=== PATIENT | female | born 1945 | race Caucasian/White ===

== ENCOUNTER 2020-11-03 10:42 | Outpatient (CLI) | payer SELFPAY ==
[2020-11-03 11:09] LABS: Basophils # 0.1 10^3/uL (0.0-0.1); Basophils % 1.2 %; Eosinophils # 0.3 10^3/uL (0.0-0.8); Eosinophils % 3.8 %; Hematocrit 42.2 % (37.0-47.0); Hemoglobin 13.4 g/dL (11.5-15.3); Lymphocytes # 2.6 10^3/uL (0.8-4.8); Mean Corpuscular HGB Conc 31.8 g/dL (30.0-36.0); Mean Corpuscular Hemoglobin 28.5 pg (28.0-34.0); Mean Corpuscular Volume 89.6 fL (81-99); Mean Platelet Volume 9.6 fL (7.4-10.4); Monocytes # 0.6 10^3/uL (0.2-0.9); Monocytes % 8.5 %; Neutrophils # 3.73 10^3/uL (1.8-7.7); Neutrophils % 51.1 %; Nucleated Red Blood Cells % 0 %; Platelet Count 232 10^3/cmm (130-400); Red Blood Count 4.71 10^6/uL (4.1-5.3); Red Cell Distribution Width 12.5 % (12.1-15.1); White Blood Count 7.3 10^3/uL (4.0-10.0)
[2020-11-03 11:38] LABS: Estmated Average Glucose 189; Hemoglobin A1C 8.2 % (4.0-6.0)
[2020-11-03 12:10] LABS: 25 Hydroxy Vitamin D 33 ng/mL (30-100); Alanine Aminotransferase 23 U/L (0-33); Albumin Level 3.6 g/dL (3.5-5.2); Alkaline Phosphatase 102 IU/L (35-105); Anion Gap 10.1 (5-19); Aspartate Amino Transferase 20 U/L (0-32); Blood Urea Nitrogen 13 mg/dL (8-23); Calcium 8.8 mg/dL (8.5-10.5); Carbon Dioxide 29 mmol/L (22-29); Chloride 104 mmol/L (98-107); Chol HDL Ratio 3.55 mg/dL (0.0-4.40); Cholesterol 174 mg/dL (0-200); Globulin 2.8 g/dL (1.3-4.6); Glucose 225 mg/dL (65-115); HDL Cholesterol 49 mg/dL (60-100); LDL Cholesterol Calculated 100 mg/dL (50-129); LDL HDL Ratio 2.04 RATIO (0.00-3.22); Osmolality Calculated 295 mOsm/kg (285-295); Potassium 4.1 mmol/L (3.5-5.1); Sodium 139 mmol/L (136-145); Thyroid Stimulating Hormone 3.59 uIU/mL (0.27-4.20); Total Bilirubin 0.2 mg/dL (0.15-1.2); Total Protein 6.4 g/dL (6.6-8.7); Triglycerides 124 mg/dL (0-150)
== END 2020-11-03 10:43 | disposition home or self-care (01) ==
PROVIDERS: PCP Family Medicine; Visit Provider Dermatology
DX: Z01.89 Encounter for other specified special examinations (principal)
CPT/HCPCS: 80053; 80061; 82306; 83036; 84443; 85025

== ENCOUNTER 2021-05-12 08:48 | Outpatient (CLI) | payer OTHER, SELFPAY ==
--- NOTE | 2021-05-12 08:53 | MM_ITS ---
WS: [id number] Exam: [place] [id number] Date/Time of Exam: 05/12/2021 8:56 AM Reason For Exam: SCREENING VIEWS: MLO and CC views both breasts. Comparison made with prior exam of 02/22/2011, 10/19/2016.. Findings: There was no sign of mass, architectural distortion or suspicious calcification in either breast. Sc attered fibroglandular densities. MM/[place] [id number] Impression: BI-RADS: 2-Benign FOLLOW-UP: 1 Year Follow-up This mammogram was also analyzed by the Computer Aided Detection System [employer] Consulting Manager.
--- NOTE | 2021-05-12 09:29 | XR_ITS ---
WS: [id number] SCREENING DEXA SCAN [facility] CLINICAL INFORMATION: POST MENOPAUSAL COMPARISON: None. FINDINGS: The L1-L4 bone mineral density measures 1.098 g/cm2. This corresponds to a T score score of -0.7 and Z score of -0.1. Left femoral neck bone mineral density measures 0.836 g/cm2. This corresponds to a T score of -1.4 an d Z score of -0.4. Right femoral neck bone mineral density measures 0.785 g/cm2. This corresponds to a T score -1.8of an d Z score of -0.8. Mean femoral neck bone mineral density measures 0.810 g/cm2. This corresponds to a T score of -1.6 an d Z score of -0.6. XR/XR DEXA axial skeleton* [id number] IMPRESSION: Normal bone mineralization lumbar spine. Osteopenia femoral necks. Patient's FRAX calculated 10 year probability for major osteoporotic fracture i s 23.9 % and osteoporotic hip fracture is 14.5%.
== END 2021-05-12 08:49 | disposition home or self-care (01) ==
LOC: RADSHAW 08:51
PROVIDERS: PCP Family Medicine; Visit Provider Family Medicine
DX: Z12.31 Encounter for screening mammogram for malignant neoplasm of breast (principal); Z78.0 Asymptomatic menopausal state
CPT/HCPCS: 77067; 77080

== ENCOUNTER 2021-08-01 14:14 | Emergency (ER) | payer OTHER, SELFPAY ==
[2021-08-01 14:24] VITALS: BP 199/81; PULSE 59; RESP 18; TEMP 36.4; O2SAT 96; BMI 44.2
--- NOTE | 2021-08-01 14:45 | XRR_ITS ---
PROCEDURE INFORMATION: Exam: XR Left Hip Exam date and time: 08/01/2021 2:45 PM Age: 76 years old Clinical indication: Hip pain; Left hip TECHNIQUE: Imaging protocol: XR Left hip. Views: 2 or 3 views hip with pelvis when performed. COMPARISON: No relevant prior studies available. FINDINGS: Bones/joints: Mild degenerative changes of the left hip joint and pubic symphysis. The bones are intact and in normal alignment. Soft tissues: Unremarkable. Intraperitoneal space: Metallic anchors in the low pelvis. XR/XR hip LT 2-3V wo/w pel* [id number] IMPRESSION: No acute finding.
[2021-08-01] MEDS: morphine 4 mg/mL SDV 1 mL IM (15:42)
--- NOTE | 2021-08-01 15:46 | W.ED.EXTPRO ---
HPI - Extremity Problem General: Chief complaint: General Medical Stated complaint: Hip pain Time Seen by Provider: 08/01/21 15:23 Source: patient and family Mode of arrival: ambulatory Limitations: no limitations History of Present Illness: HPI Narrative: Patient is a nice 76-year-old female who presents to ED today with a complaint of left hip pain over the past week or so. She states she initially believes the hip began bothering her after cleaning. She is reporting vague pains along the posterior aspect of the hip joint/gluteal region but also reporting pain laterally. She states pain seems to worsen with prolonged ambulation, rising from a seated position, and sleeping on the affected side. She was treated about 48 hours ago with IM Dexamethasone and Toradol without much improvement. She has been doing ice and heat as well at home. She does not complain of radicular symptoms. She does not complain of lower back pain. MD Complaint: joint pain Onset (ago): day(s) Pain Consistency: constant Location: left Exacerbating factors: weight bearing and walking Associated symptoms: Reports no associated symptoms; Deny chest pain or fever(s) Review of Systems Const: Denies: fever(s), chills, body aches, fatigue or malaise Card: Denies: chest pain Resp: Denies: dyspnea : Denies: flank pain or dysuria Musc: Reports: joint pain (L hip); Denies: neck pain, back pain, extremity pain, extremity swelling, joint swelling, joint redness or joint warmth Neuro: Denies: numbness in extremities, weakness in extremities or sensory changes [facility] PFSH: Medical History (Updated 08/01/21 @ 16:18 by VAL Avendano) Diabetic acidosis HTN (hypertension) Surgical History (Updated 08/03/20 @ 12:21 by Valery Escobar DO) History of appendectomy History of hysterectomy Family History Other Arthritis Cancer Diabetes Social History (Updated 08/03/20 @ 09:07 by Sandee Adams LPN) Smoking and tobacco status: former smoker Alcohol intake: never Physical Exam Const: COMMON NORMALS: no acute distress, patient oriented x3, no limitations and alert GENERAL APPEARANCE: cooperative NUTRITIONAL APPEARANCE: obese morbidly obese ORIENTATION/CONSCIOUSNESS: Yes awake, Yes oriented to person, Yes oriented to place and Yes oriented to time Back/Pelvis: COMMON NORMALS: thoracic and lumbar spine normal to inspection, no thoracic nor lumbar tenderness and thoraco-lumbar ROM normal Extremity: COMMON NORMALS: full ROM, capillary refill normal, no joint enlargement, no clubbing, cyanosis or edema, no calf tenderness and no pedal edema GENERAL: Yes normal exam except as noted LEFT LOWER EXTREMITY: Yes hip joint Left hip: Yes palpation (vague tenderness to posteriolateral hip; pain worse w/ certain ROM maneuver) and Yes neurovascular exam (normal) Neuro: COMMON NORMALS: patient oriented x3, moves all extremities, no focal motor deficits and no sensory deficits noted SENSORIUM/ORIENTATION: Yes alert, Yes oriented to person, Yes oriented to place and Yes oriented to time Skin: COMMON NORMALS: no rashes or lesions noted GENERAL SKIN EXAM: no rashes or lesions noted Course Vital Signs: Vital signs: Vital Signs Temperature 97.6 F 08/01/21 14:24 Pulse Rate 59 L 08/01/21 14:24 Respiratory Rate 18 08/01/21 14:24 Blood Pressure 199/81 08/01/21 14:24 Pulse Oximetry 96 08/01/21 14:24 MDM - Extremity (Nontraumatic) MDM Narrative: Medical decision making narrative: History and exacerbating factors are suspicious for a greater trochanter pain syndrome/trochanteric bursitis. She was given instructions for specific exercises she can try. We can also see if steroids/muscle relaxers will help at all with this. Will place referral to orthopedics for further evaluation. Discussed how physical therapy sometimes can be beneficial as well. Imaging Data^: XR L hip: My impression: NAD Discharge Plan Discharge Patient Disposition: Home Clinical Impression: Greater trochanteric pain syndrome Condition: Stable Prescriptions: New Zanaflex 2 mg capsule 2 mg PO Q8H PRN (Reason: muscle spasticity) Qty: 30 RF: 0 prednisone 10 mg tablet 10 mg PO DAILY 10 Days Qty: 41 RF: 0 No Action losartan 100 mg tablet 100 mg PO DAILY RF: 0 glimepiride 2 mg tablet 2 mg PO QAM RF: 0 amlodipine 10 mg tablet 10 mg PO DAILY PRNRF: 0 hydrochlorothiazide 25 mg tablet 25 mg PO .prn RF: 0 Galzin 50 mg (zinc) capsule 50 mg PO DAILY RF: 0 potassium gluconate 595 mg (99 mg) tablet 595 mg PO DAILY RF: 0 ascorbate calcium (vitamin C) 500 mg tablet 500 mg PO DAILY RF: 0 naproxen 250 mg tablet 250 mg PO BID PRNRF: 0 cholecalciferol (vitamin D3) 50 mcg (2,000 unit) capsule 50 mcg PO DAILY RF: 0 ketoconazole 2 % shampoo 1 applic topical .2 x weekly Qty: 120 RF: 3 ketoconazole 2 % cream 1 applic topical BID Qty: 60 RF: 2 mometasone 0.1 % solution 1 applic topical DAILY Qty: 60 RF: 2 Discharge Orders: Discharge ED (Routine); Ordered 08/01/21 Ordered By: Mis Sullivan Referrals: Gareth Moreau MD [Primary Care Provider] - Coding Level of Care Code ED Medical Authorization Specialist for Ralph Santos
--- NOTE | 2021-08-01 22:51 | DCPLANNER ---
manager civil had message to schedule a follow up appointment for patient with ortho. manager civil emailed patients information to Yolanda at the ortho clinic. Patients information will be printed and reviewed. Clinic will call patient with appointment information.
--- NOTE | 2021-08-05 14:39 | DCPLANNER ---
Addendum entered by Carrie Matias 09/16/21 17:24: Patient had a follow up appointment scheduled for 09.08.21 - appointment was cancelled. Original Note: Patient has a follow up appointment scheduled for Wednesday, September 08, 2021 at 10:[address] Quigley at [facility]. Clinic will call patient with appointment information.
== END 2021-08-01 16:57 | disposition home or self-care (01) ==
PROVIDERS: Emergency Provider Physician Assistant; PCP Family Medicine
DX: M25.552 Pain in left hip (principal); Z79.84 Long term (current) use of oral hypoglycemic drugs; E11.9 Type 2 diabetes mellitus without complications; I10 Essential (primary) hypertension; Z87.891 Personal history of nicotine dependence
CPT/HCPCS: 73502; 96372; 99283; J2270

== ENCOUNTER → 2021-12-22 11:18 | Outpatient (BNVA) | payer MEDICARE, SELFPAY | PROVIDERS: PCP Family Medicine; Visit Provider Family Medicine | DX: E78.5 Hyperlipidemia, unspecified (principal); I10 Essential (primary) hypertension; E11.8 Type 2 diabetes mellitus with unspecified complications | CPT/HCPCS: 80053; 83036; 84443 ==

== ENCOUNTER → 2022-02-16 14:44 | Outpatient (BNVA) | payer MEDICARE, SELFPAY | PROVIDERS: PCP Family Medicine; Visit Provider Family Medicine | DX: N39.0 Urinary tract infection, site not specified (principal) | CPT/HCPCS: 81000; 87077; 87086; 87184 ==

== ENCOUNTER → 2022-03-02 09:18 | Outpatient (BNVA) | payer MEDICARE, SELFPAY | PROVIDERS: PCP Family Medicine; Referring Provider Family Medicine; Visit Provider Orthopaedic Surgery | DX: M17.11 Unilateral primary osteoarthritis, right knee (principal) | CPT/HCPCS: 20610; 99204; J0702; J3490 ==

== ENCOUNTER 2022-04-26 07:54 | Outpatient (CLI) | payer SELFPAY ==
[2022-04-26 08:48] LABS: HF Add Manual Diff No
[2022-04-26 08:59] LABS: Basophils # 0.1 10^3/uL (0.0-0.1); Basophils % 0.9 %; Eosinophils # 0.2 10^3/uL (0.0-0.8); Eosinophils % 3.2 %; Hematocrit 46.3 % (37.0-47.0); Hemoglobin 15.1 g/dL (11.5-15.3); Lymphocytes # 2.9 10^3/uL (0.8-4.8); Lymphocytes % 38.6 %; Mean Corpuscular HGB Conc 32.6 g/dL (30.0-36.0); Mean Corpuscular Volume 88.9 fl (81-99); Mean Platelet Volume 8.9 fL (7.4-10.4); Monocytes # 0.7 10^3/uL (0.2-0.9); Monocytes % 9.6 %; Neutrophils # 3.56 10^3/uL (1.8-7.7); Neutrophils % 47.4 %; Nucleated Red Blood Cells % 0 %; Platelet Count 234 10^3/cmm (130-400); Red Blood Count 5.21 10^6/uL (4.1-5.3); White Blood Count 7.5 10^3/uL (4.0-10.0)
[2022-04-26 09:25] LABS: Alanine Aminotransferase 19 U/L (0-33); Alkaline Phosphatase 95 U/L (35-105); Anion Gap 12.1 (5-19); Aspartate Amino Transferase 21 U/L (0-32); Blood Urea Nitrogen 12 mg/dL (8-23); Calcium 9.1 mg/dL (8.5-10.5); Carbon Dioxide 28 mmol/L (22-29); Chloride 105 mmol/L (98-107); Cholesterol 199 mg/dL (0-200); Globulin 2.6 g/dL (1.3-4.6); Glucose 108 mg/dL (65-115); HDL Cholesterol 51 mg/dL (60-100); LDL Cholesterol Calculated 131 mg/dL (50-129); LDL HDL Ratio 2.57 RATIO (0.00-3.22); Osmolality Calculated 292 mOsm/kg (285-295); Potassium 4.1 mmol/L (3.5-5.1); Sodium 141 mmol/L (136-145); Thyroid Stimulating Hormone 3.88 uIU/mL (0.27-4.20); Total Bilirubin 0.5 mg/dL (0.15-1.2); Total Protein 6.6 g/dL (6.6-8.7); Triglycerides 83 mg/dL (0-150)
[2022-04-26 09:34] LABS: Estmated Average Glucose 160; Hemoglobin A1C 7.2 % (4.0-6.0)
== END 2022-04-26 07:55 | disposition home or self-care (01) ==
LOC: LAB 07:58
PROVIDERS: PCP Family Medicine; Visit Provider Dermatology
DX: Z01.89 Encounter for other specified special examinations (principal)

== ENCOUNTER 2022-07-26 10:12 | Outpatient (CLI) | payer SELFPAY ==
[2022-07-26 10:48] LABS: HF Add Manual Diff No
[2022-07-26 11:11] LABS: Basophils # 0.1 10^3/uL (0.0-0.1); Basophils % 1.2 %; Eosinophils # 0.3 10^3/uL (0.0-0.8); Eosinophils % 3.7 %; Hematocrit 47.6 % (37.0-47.0); Hemoglobin 15.4 g/dL (11.5-15.3); Lymphocytes # 3.4 10^3/uL (0.8-4.8); Mean Corpuscular HGB Conc 32.4 g/dL (30.0-36.0); Mean Corpuscular Hemoglobin 28.5 pg (28.0-34.0); Monocytes # 0.8 10^3/uL (0.2-0.9); Monocytes % 8.6 %; Neutrophils % 48.3 %; Nucleated Red Blood Cells % 0 %; Platelet Count 264 10^3/cmm (130-400); Red Blood Count 5.41 10^6/uL (4.1-5.3); Red Cell Distribution Width 12.7 % (12.1-15.1); White Blood Count 8.9 10^3/uL (4.0-10.0)
[2022-07-26 11:18] LABS: Alanine Aminotransferase 21 U/L (0-33); Albumin Level 3.8 g/dL (3.5-5.2); Alkaline Phosphatase 110 U/L (35-105); Anion Gap 11.4 (5-19); Aspartate Amino Transferase 18 U/L (0-32); Blood Urea Nitrogen 13 mg/dL (8-23); Calcium 9.4 mg/dL (8.5-10.5); Carbon Dioxide 28 mmol/L (22-29); Chloride 102 mmol/L (98-107); Chol HDL Ratio 3.43 mg/dL (0.0-4.40); Cholesterol 185 mg/dL (0-200); Globulin 3.2 g/dL (1.3-4.6); Glucose 142 mg/dL (65-115); HDL Cholesterol 54 mg/dL (60-100); LDL Cholesterol Calculated 114 mg/dL (50-129); LDL HDL Ratio 2.11 RATIO (0.00-3.22); Osmolality Calculated 287 mOsm/kg (285-295); Potassium 4.4 mmol/L (3.5-5.1); Sodium 137 mmol/L (136-145); Total Bilirubin 0.3 mg/dL (0.15-1.2); Triglycerides 83 mg/dL (0-150)
[2022-07-26 12:12] LABS: Estmated Average Glucose 157; Hemoglobin A1C 7.1 % (4.0-6.0)
== END 2022-07-26 10:13 | disposition home or self-care (01) ==
PROVIDERS: PCP Family Medicine; Visit Provider Dermatology
DX: Z01.89 Encounter for other specified special examinations (principal)

== ENCOUNTER → 2023-02-21 13:47 | Outpatient (BNVA) | payer OTHER, MEDICAID, SELFPAY | PROVIDERS: PCP Family Medicine; Visit Provider Family Medicine | DX: I10 Essential (primary) hypertension (principal); E11.9 Type 2 diabetes mellitus without complications | CPT/HCPCS: 80053; 80061; 83036 ==

== ENCOUNTER → 2023-05-16 09:08 | Outpatient (BNVA) | payer MEDICARE, SELFPAY | PROVIDERS: PCP Family Medicine; Visit Provider Family Medicine | DX: M79.672 Pain in left foot (principal); R60.9 Edema, unspecified; I10 Essential (primary) hypertension | CPT/HCPCS: 80053; 83880; 84550; 85025; 85379; 86140 ==

== ENCOUNTER 2023-05-18 14:27 | Outpatient (CLI) | payer MEDICARE, SELFPAY ==
--- NOTE | 2023-05-18 14:45 | USCV_ITS ---
Rachel Gonzalez Age: 77 Gender: F : 1945 Exam Date: 05/18/2023 14:55 Ordering Phys: Gareth Moreau MD Technologist: Gucci Gresham Exam Location: [facility] [place]_ Indication: lt leg edema PROCEDURES: Venous duplex imaging was performed in only the left lower extremity. The following venous structures were evaluated: common femoral vein, profunda vein, proximal portion of the greater saphenous vein, superficial femoral vein, and the popliteal vein. In addition, the posterior tibial and peroneal trunk were evaluated. FINDINGS: Normal 2-D Doppler and augmentation and compressibility throughout the lower extremity venous structures. Additional imaging through the proximal calf veins also reveals no thrombus. Limited evaluation of the greater saphenous vein is patent with no thrombus. CONCLUSIONS No evidence of left lower extremity DVT. Jay Thurston MD (Electronically Signed) Final Date: 18 May 2023 17:14 S
== END 2023-05-18 14:28 | disposition home or self-care (01) ==
LOC: RAD 14:28
PROVIDERS: PCP Family Medicine; Visit Provider Family Medicine
DX: R60.9 Edema, unspecified (principal); M79.672 Pain in left foot; R79.89 Other specified abnormal findings of blood chemistry
CPT/HCPCS: 93971

== ENCOUNTER 2023-05-23 11:52 | Outpatient (CLI) | payer MEDICARE, SELFPAY ==
--- NOTE | 2023-05-23 11:59 | XRR_ITS ---
PROCEDURE INFORMATION: Exam: XR Left Foot Exam date and time: 05/23/2023 12:09 PM Age: 77 years old Clinical indication: Pain; Foot; Left; Additional info: Foot pain TECHNIQUE: Imaging protocol: Radiologic exam of the left foot. Views: 3 or more views. COMPARISON: No relevant prior studies available. FINDINGS: Bones/joints: No acute fracture or dislocation. Diffusely decreased mineralization. Mild degenerative change at the great toe MTP joint and scattered throughout the IP joints. Plantar calcaneal enthesophyte. Soft tissues: Soft tissue swelling greatest about the imaged lower leg and ankle. XR/XR foot LT min 3V* [id number] IMPRESSION: 1. Osteopenia without evidence of acute fracture or dislocation. 2. Lower leg and ankle soft tissue edema.
== END 2023-05-23 11:53 | disposition home or self-care (01) ==
LOC: RAD 11:54
PROVIDERS: PCP Family Medicine; Visit Provider Family Medicine
DX: M79.672 Pain in left foot (principal); M85.872 Other specified disorders of bone density and structure, left ankle and foot; R60.0 Localized edema
CPT/HCPCS: 73630

== ENCOUNTER → 2024-07-02 09:04 | Outpatient (BNVA) | payer MEDICARE, SELFPAY | PROVIDERS: PCP Family Medicine; Visit Provider Family Medicine | DX: I10 Essential (primary) hypertension (principal); E11.9 Type 2 diabetes mellitus without complications; E55.9 Vitamin D deficiency, unspecified; N76.3 Subacute and chronic vulvitis | CPT/HCPCS: 80053; 80061; 81000; 82306; 83036; 85025; 87086 ==

== ENCOUNTER 2024-09-23 15:40 | Outpatient (CLI) | payer MEDICARE, SELFPAY ==
--- NOTE | 2024-09-23 16:00 | MR_ITS ---
WS: [id number] MRI LEFT SHOULDER HISTORY: rotator cuff injury COMPARISON: None available. TECHNIQUE: Multiplanar sequences of the shoulder joint are submitted. Initial exam was performed on 09/23/2024 and repeated on 09/27/2024 for better quality imaging. Moderate to severe AC joint arthritis. AC joint is narrowed with small amount of fluid. Hypertrophic soft tissue in osteophyte. Slight downsloping of the acromion with severe subacromial impingement. There is fluid in the subacromial and subdeltoid bursa. Humeral head abuts the undersurface of the acromion. Very small caliber biceps tendon. There is increased fluid surrounding the residual biceps tendon. Probable partial tear with retraction of portion of the biceps tendon. No os acromion. Moderate amount of fluid surrounding the humeral head extending into the axillary pouch and the subscapularis recess. High riding humeral head. Severe atrophy of the supraspinatus muscle. Complete tear of the supraspinatus tendon retracted to the medial humeral head. Marked infraspinatus muscle atrophy. There is marked thinning of the distal tendon and probable insertion site tear. There is no full-thickness tear. Marked thickening of the subscapularis tendon. There is an interstitial tear distally. This tear probably starts from the insertion site and extends along the tendon. Teres minor is better preserved. Cortical irregularity and loss of the normal cartilage surrounding the humeral head. Intrasubstance degeneration in the superior labrum with a focal labral tear. The remaining labrum has intrasubstance degeneration but no additional tears. MR/MR shoulder LT wo con* [id number] IMPRESSION: 1. Severely high riding humeral head with asymmetric widening of the glenohume ral joint. 2. Moderate to severe AC joint arthritis. 3. Complete supraspinatus tendon tear with retraction to the medial humeral he ad. Severe supraspinatus muscle atrophy. 4. Marked thickening of the distal subscapularis tendon with tendinopathy. The re is an additional insertion site tear with interstitial extension of the tear into the subscapularis tendon. 5. Atrophy infraspinatus muscle with distal insertion site tear. 6. Very small caliber biceps tendon in the bicipital groove with tenosynovitis . Biceps tendon appears to be partially torn and retracted. 7. Superior labral tear.
== END 2024-09-23 15:41 | disposition home or self-care (01) ==
PROVIDERS: PCP Family Medicine; Visit Provider Family Medicine
DX: S46.012A Strain of muscle(s) and tendon(s) of the rotator cuff of left shoulder, initial encounter (principal); X58.XXXA Exposure to other specified factors, initial encounter; M13.812 Other specified arthritis, left shoulder; M25.712 Osteophyte, left shoulder; R93.6 Abnormal findings on diagnostic imaging of limbs; M62.512 Muscle wasting and atrophy, not elsewhere classified, left shoulder; S46.812A Strain of other muscles, fascia and tendons at shoulder and upper arm level, left arm, initial encounter
CPT/HCPCS: 73221

== ENCOUNTER → 2024-12-31 09:42 | Outpatient (BNVA) | payer MEDICARE, SELFPAY | PROVIDERS: PCP Family Medicine; Visit Provider Family Medicine | DX: I10 Essential (primary) hypertension (principal); E11.9 Type 2 diabetes mellitus without complications; R79.89 Other specified abnormal findings of blood chemistry | CPT/HCPCS: 80053; 80061; 82306; 83036; 85025 ==

== ENCOUNTER 2025-04-04 10:46 | Outpatient (CLI) | payer MEDICARE, SELFPAY ==
--- NOTE | 2025-04-04 12:40 | MM_ITS ---
WS: [id number] BILATERAL SCREENING DIGITAL TOMOSYNTHESIS MAMMOGRAM WITH CAD HISTORY: Z12.31 - Encounter for screening mammogram for malignant ... COMPARISON: 05/12/2021, 02/22/2011, 10/19/2016 Bilateral CC and MLO views with tomosynthesis and synthetic mammography submitted. Computer aided detection analyzed. Breast composition: There are scattered areas of fibroglandular density. No suspicious masses, microcalcifications or architectural distortion. Scattered asymmetries, nodules and calcifications are benign in appearance. Mild progression of calcifications. MM/MM [facility] tomosynthesis [id number] IMPRESSION: BI-RADS: 2 - Benign. FOLLOW UP: 1 Year Follow-up
--- NOTE | 2025-04-04 13:00 | XR_ITS ---
WS: [id number] SCREENING DEXA SCAN [employer] CLINICAL INFORMATION: Z78.0 - Asymptomatic menopausal state COMPARISON: 2020 FINDINGS: The L1-L4 bone mineral density measures 1.027 g/cm2. This corresponds to a T score score of -1.3 and Z score of -0.6. Left femoral neck bone mineral density measures 0.759 g/cm2. This corresponds to a T score of -2.0 and Z score of -0.8. Right femoral neck bone mineral density measures 0.765 g/cm2. This corresponds to a T score -1.9of and Z score of -0.7. Mean femoral neck bone mineral density measures 0.762 g/cm2. This corresponds to a T score of -1.9 and Z score of -0.7. XR/XR DEXA axial skeleton* [id number] IMPRESSION: Osteopenia lumbar spine. Osteopenia femoral necks. Patient's FRAX calculated 10 year probability for major osteoporotic fracture i s 31.2% and osteoporotic hip fracture is 21.1%.
== END 2025-04-04 10:47 | disposition home or self-care (01) ==
LOC: RAD 10:47
PROVIDERS: PCP Family Medicine; Visit Provider Nurse Practitioner Women's Health
DX: Z12.31 Encounter for screening mammogram for malignant neoplasm of breast (principal); Z13.820 Encounter for screening for osteoporosis; Z78.0 Asymptomatic menopausal state; M85.88 Other specified disorders of bone density and structure, other site; M85.852 Other specified disorders of bone density and structure, left thigh; M85.851 Other specified disorders of bone density and structure, right thigh
CPT/HCPCS: 77063; 77067; 77080

== ENCOUNTER → 2025-04-10 10:28 | Outpatient (BNVA) | payer MEDICARE, SELFPAY | PROVIDERS: PCP Family Medicine; Visit Provider Nurse Practitioner Family | DX: S50.912A Unspecified superficial injury of left forearm, initial encounter (principal); S50.911A Unspecified superficial injury of right forearm, initial encounter; X58.XXXA Exposure to other specified factors, initial encounter; L73.8 Other specified follicular disorders; L82.1 Other seborrheic keratosis; L81.4 Other melanin hyperpigmentation; L85.3 Xerosis cutis; L82.0 Inflamed seborrheic keratosis; L29.89 Other pruritus; R20.9 Unspecified disturbances of skin sensation; R20.8 Other disturbances of skin sensation; R23.8 Other skin changes; L53.8 Other specified erythematous conditions | CPT/HCPCS: 17110; 99203 ==

== ENCOUNTER → 2025-04-22 08:44 | Outpatient (BNVA) | payer MEDICARE, SELFPAY | PROVIDERS: PCP Family Medicine; Visit Provider Family Medicine | DX: I10 Essential (primary) hypertension (principal); E11.9 Type 2 diabetes mellitus without complications | CPT/HCPCS: 80053; 80061; 83036; 85025 ==